=== PATIENT | female | born 1980 ===

== ENCOUNTER 2017-12-19 07:15 | Inpatient (IN) | payer OTHER ==
[~2017-12-19] VITALS: Ht 152.4 cm; Wt 3.2 kg
[2018-01-07] MEDS ORDERED: PRENATAL PLUS1 EAC1 PO (09:44)
== END 2018-01-10 16:37 | DRG 786 ==
LOC: OB/GYN 01-07 07:15 → O/R 01-07 08:54 → OB/GYN 01-07 12:15
PROVIDERS: Obstetrics & Gynecology Maternal & Fetal Medicine
PROC: 4A1HXCZ Monitoring of Products of Conception, Cardiac Rate, External Approach (ICD-10-PCS; 2018-01-07)
PROC: 10D00Z1 Extraction of Products of Conception, Low, Open Approach (ICD-10-PCS; principal; 2018-01-07 12:15)
DX: O34.211 Maternal care for low transverse scar from previous cesarean delivery (principal); O60.14X0 Preterm labor third trimester with preterm delivery third trimester, not applicable or unspecified; O75.82 Onset (spontaneous) of labor after 37 completed weeks of gestation but before 39 completed weeks gestation, with delivery by (planned) cesarean section; Z37.0 Single live birth; Z3A.36 36 weeks gestation of pregnancy